=== PATIENT | female | born 1985 | race Caucasian/White ===

== ENCOUNTER 2017-04-30 11:10 | Emergency (ER) | payer MEDICARE, OTHER ==
[2017-04-30 13:25] VITALS: BP 100/67; PULSE 124; RESP 20; TEMP 97.2; O2SAT 99
== END 2017-04-30 12:02 | disposition home or self-care (01) | DRG 880 ==
LOC: ED 11:10
DX: F41.9 Anxiety disorder, unspecified (principal)
CPT/HCPCS: 99282

== ENCOUNTER 2017-05-04 10:13 | Emergency (ER) | payer MEDICARE, OTHER ==
[2017-05-04 10:22] VITALS: BP 123/85; PULSE 100; RESP 20; TEMP 97.6; O2SAT 97
== END 2017-05-04 10:49 | disposition home or self-care (01) | DRG 880 ==
LOC: ED 10:13
DX: F41.9 Anxiety disorder, unspecified (principal)
CPT/HCPCS: 99282